=== PATIENT | female | born 1970 | race Two or more races ===

== ENCOUNTER 2016-09-01 16:36 | Emergency (ER) | payer OTHER ==
[2016-09-01 20:02] LABS: ABSOLUTE NEUTROPHIL COUNT 6.4 K/mm3 (1.8-7.7); BASO % 0.3 % (0.2-1.0); EOS # 0.1 (0.0-0.5); EOS % 0.6 % (0.9-2.9); HEMATOCRIT 39.9 % (37.0-47.0); HEMOGLOBIN 13.7 gm/l (12.0-16.0); IMM NEUT # 0.1 K/mm3 (0-0.2); IMM NEUT% 0.6 % (0-1); LYMPH # 1.7 (1.0-4.8); LYMPH % 20.1 % (15-45); MEAN CELL VOLUME 94.8 fl (81.0-99.0); MEAN CORPUSCULAR HEMOGLOBIN 32.5 pg (27.0-31.0); MEAN CORPUSCULAR HGB CONC 34.3 g/dl (33.0-37.0); MEAN PLATELET VOLUME 11.4 fl (7.4-10.4); MONO # 0.4 (0.0-0.8); NEUT % 74.4 % (43-75); PLATELET COUNT 292 K/mm3 (130-400); RED CELL DISTRIBUTION WIDTH 11.4 % (11.5-14.5)
[2016-09-01 20:16] LABS: CALCIUM 9.6 mg/dL (8.6-10.3)
--- NOTE | 2016-09-01 22:05 | RAD ---
CHEST - 2 VIEWS COMPARISON: Chest 2 views, 10/28/2014 HISTORY: Left sided chest pain. FINDINGS: Views: Frontal and lateral chest Lungs: Normal Heart and vessels: Normal Trachea and bronchi: Normal Mediastinum and jef: Normal Costophrenic sulci: Normal Chest wall and bones: Normal. Upper abdomen: Surgical clips in the right upper quadrant. 2 cm diameter rim calcification in the left upper quadrant. IMPRESSION: 1. No acute finding. 2. Cholecystectomy clips in the right upper quadrant. 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
== END 2016-09-01 21:42 | disposition home or self-care (01) ==
LOC: ED 16:36
DX: R07.9 Chest pain, unspecified (principal); E11.9 Type 2 diabetes mellitus without complications; Z79.84 Long term (current) use of oral hypoglycemic drugs